=== PATIENT | male | born 1945 | race Hispanic/Latino ===

== ENCOUNTER 2017-02-15 18:03 | Emergency (ER) | payer MEDICARE ==
[~2017-02-15 18:03] MED LIST: CELE200 PO; FENT50PAT TD; FLUO40CA7 PO; HYDR-4068 PO; IPRA4AER IH; LEG CRAMP PO; TAMS0.4C32 PO
[2017-02-15 18:47] LABS: BASOPHILS % (AUTO) 0.7 % (0.0-5.0); EOSINOPHILS % (AUTO) 3.4 % (0.0-8.0); HEMATOCRIT 31.1 % (42-54); LYMPHOCYTES % (AUTO) 23.4 % (21.0-51.0); MEAN CORPUSCULAR HEMOGLOBIN 30.4 pg (27.0-33.0); MEAN CORPUSCULAR HGB CONC 34.1 g/dL (32.0-36.0); MEAN CORPUSCULAR VOLUME 89.1 fL (79-99); NEUTROPHILS % (AUTO) 64.5 % (40.0-77.0); PLATELET COUNT (AUTO) 218 K/uL (130-400); RED BLOOD CELL COUNT(AUTO) 3.49 MIL/uL (4.50-6.20); RED CELL DISTRIBUTION WIDTH 15.8 % (11.0-15.5)
[2017-02-15 18:57] LABS: CREATININE 0.8 mg/dL (0.5-1.5); POTASSIUM 3.8 mmol/L (3.5-5.1)
[2017-02-15 19:02] LABS: ALBUMIN 3.1 g/dL (3.5-5.0); BILIRUBIN,TOTAL 0.3 mg/dL (0.2-1.0); TOTAL PROTEIN, SERUM 7.4 g/dL (6.0-8.3)
[2017-02-15 19:52] LABS: APPEARANCE,URINE Cloudy (CLEAR); BILIRUBIN,URINE Negative (NEGATIVE); COLOR,URINE Yellow (YELLOW); GLUCOSE, URINE (UA) Negative (NEGATIVE); KETONES,URINE Negative (NEGATIVE); LEUKOCYTE ESTERASE ,URINE Large (NEGATIVE); NITRATE,URINE Positive (NEGATIVE); OCCULT BLOOD,URINE Large (NEGATIVE); PH,URINE 6.5 (5.0-8.0); PROTEIN,URINE Trace (NEGATIVE)
[2017-02-15 20:28] LABS: RBC,URINE 26-50 /HPF (0-1)
[2017-02-15 20:29] LABS: BACTERIA,URINE Many /HPF (None Seen)
[2017-02-15] MEDS ORDERED: LEVOFLOXACIN 500 MG TABLET ONE (20:41)
== END 2017-02-15 20:56 | disposition home or self-care (01) ==
LOC: EDH 18:03
DX: N39.0 Urinary tract infection, site not specified (principal); J44.9 Chronic obstructive pulmonary disease, unspecified; Z86.73 Personal history of transient ischemic attack (TIA), and cerebral infarction without residual deficits
CPT/HCPCS: 36415; 80053; 81001; 85025; 87088; 87186

== ENCOUNTER 2018-03-07 10:46 | Inpatient (IN) | payer MEDICARE | END 2018-03-09 11:30 | disposition EXP | LOC: EDH 10:46 → 4AH 03-08 08:32 → EDHIP 14:38 ==